=== PATIENT | female | born 1975 | race Two or more races ===

== ENCOUNTER 2020-01-15 06:07 | Inpatient (IN) | payer OTHER ==
[2020-01-14 09:59] LABS: BASOPHILS # (AUTO) 0.02 x10^3/uL (0-0.1); BASOPHILS % (AUTO) 0 % (0-1); EOSINOPHILS # (AUTO) 0.11 x10^3/uL (0-0.4); EOSINOPHILS % (AUTO) 2 % (1-7); LYMPHOCYTES # (AUTO) 1.82 x10^3/uL (1-3.4); LYMPHOCYTES % (AUTO) 31 % (22-44); MD NO; MEAN CORPUSCULAR HEMOGLOBIN 30.7 pg (27.0-34.8); MEAN CORPUSCULAR HGB CONC 33.9 g/dL (32.4-35.8); MEAN CORPUSCULAR VOLUME 90.6 fL (80-100); MEAN PLATELET VOLUME 10.5 fL (7.4-10.4); MONOCYTES # (AUTO) 0.38 x10^3/uL (0.2-0.8); MONOCYTES % (AUTO) 7 % (2-9); NEUTROPHILS # (AUTO) 3.57 x10^3/uL (1.8-6.8); NEUTROPHILS % (AUTO) 61 % (42-75); PLATELET COUNT 180 x10^3/uL (130-400); RED BLOOD COUNT 4.42 x10^6/uL (3.82-5.3); RED CELL DISTRIBUTION WIDTH 13.1 % (9.6-15.2)
[2020-01-14 10:13] LABS: ANION GAP 5 mmol/L (5-15); CALCIUM 9.3 mg/dL (8.5-10.1); CHLORIDE 108 mmol/L (98-107); CHOLESTEROL, TOTAL 178 mg/dL (140-239); TOTAL IRON BINDING CAPACITY 340 mcg/dL (250-450)
[2020-01-14 10:40] LABS: % IRON SATURATION 25 % (20-55); ALANINE AMINOTRANSFERASE 56 U/L (12-78); ALKALINE PHOSPHATASE 60 U/L (45-117); BILIRUBIN,TOTAL 0.8 mg/dL (0.2-1.0); CHOL/HDL RATIO 3.5; HDL CHOL % 29 % (28-40); HDL CHOLESTEROL (DIRECT) 51 mg/dL (40-60); IRON LEVEL 86 mcg/dL (50-170); LDL CHOLESTEROL,CALCULATED 86 mg/dL (54-169); LDL/HDL RATIO 1.7 (0.5-3.0); PREALBUMIN 21.5 mg/dL (20.0-40.0); TOTAL PROTEIN 7.3 g/dL (6.4-8.2); TRANSFERRIN 279 mg/dL (200-360); TRIGLYCERIDES 204 mg/dL (50-200); VLDL CHOLESTEROL 41 mg/dL (0-25)
[~2020-01-15] VITALS: Ht 154.9 cm; Wt 124.0 kg
[~2020-01-15 06:07] MED LIST: LISI-170 PO
[2020-01-15] MEDS ORDERED: BUPIVACAINE/PF-EPI 0.5% 1:200K ONE (06:47)
[2020-01-15] MEDS ORDERED: LACTATED RINGERS 1,000 ML IV SCH (07:14)
[2020-01-15 07:18] VITALS: BP 132/82
[2020-01-15] MEDS ORDERED: SCOPOLAMINE 1MG PATCH TD ONE (07:30)
[2020-01-15] MEDS ORDERED: CHLORHEXIDINE 15 ML UDC MM ONE (07:30)
[2020-01-15] MEDS ORDERED: ACETAMINOPHEN 100 ML IVPB ONE ×2 (07:30→08:00)
[2020-01-15] MEDS ORDERED: CHLORHEXIDINE 15 ML UDC ONE (07:37)
[2020-01-15 07:45] LABS: HCG UR SG 1.012 (1.003-1.030)
[2020-01-15] MEDS ORDERED: FENTANYL PF 250 MCG/5ML ONE (08:31)
[2020-01-15] MEDS ORDERED: MIDAZOLAM 1 MG/ML, 2ML ONE (08:31)
[2020-01-15] MEDS ORDERED: ONDANSETRON 2MG/ML, 2ML ONE ×2 (09:04→13:09)
[2020-01-15] MEDS ORDERED: SUGAMMADEX 200 MG/2 ML IVPush ONE (09:04)
[2020-01-15] MEDS ORDERED: ROCURONIUM 10 MG/ML,10ML ONE (09:04)
[2020-01-15] MEDS ORDERED: CEFAZOLIN 1,000 MG ONE (09:04)
[2020-01-15] MEDS ORDERED: PROPOFOL 10 MG/ML, 20ML ONE (09:04)
[2020-01-15] MEDS ORDERED: SUCCINYLCHOLINE 20 MG/ML, 10ML ONE (09:04)
[2020-01-15] MEDS ORDERED: DEXAMETHASONE 4 MG/ML, 1ML ONE (09:04)
[2020-01-15] MEDS ORDERED: KETOROLAC 30 MG/1 ML ONE (09:04)
[2020-01-15] MEDS: LACTATED RINGERS 1,000 ML IV SCH ×3 (09:58→21:57)
[2020-01-15] MEDS ORDERED: KETOROLAC 30 MG/1 ML IV PRN (10:00)
[2020-01-15] MEDS ORDERED: METOCLOPRAMIDE 5 MG/ML, 2ML IV PRN (10:00)
[2020-01-15] MEDS ORDERED: ENOXAPARIN 40 MG/0.4 ML SQ SCH (10:00)
[2020-01-15] MEDS ORDERED: ALBUTEROL SULFATE 2.5 MG/3 ML NPPB PRN (10:00)
[2020-01-15] MEDS ORDERED: DIAZEPAM 5 MG/ML, 2ML IV PRN ×2 (10:00)
[2020-01-15] MEDS ORDERED: HYDROmorphone 1 MG/ML, 1ML INJ IV PRN (10:00)
[2020-01-15] MEDS ORDERED: PHENOL THROAT SPRAY BOTTLE MM PRN (10:00)
[2020-01-15] MEDS ORDERED: OXYcodone 5 MG/5 ML ORAL.SOL UDC PO PRN (10:00)
[2020-01-15] MEDS ORDERED: PROMETHAZINE 25 MG/ML, 1ML IM PRN (10:00)
[2020-01-15] MEDS ORDERED: LABETALOL 5MG/ML, 20ML IV PRN (10:00)
[2020-01-15] MEDS ORDERED: MEPERIDINE/PF 25MG/0.5ML IVPush PRN (10:00)
[2020-01-15] MEDS ORDERED: ONDANSETRON 2MG/ML, 2ML IVPush PRN ×2 (10:00)
[2020-01-15] MEDS: FAMOTIDINE 20 MG/2 ML IVPush SCH ×2 (10:00→21:42)
[2020-01-15] MEDS ORDERED: PROMETHAZINE 12.5 MG SUPP PR PRN (10:00)
[2020-01-15] MEDS ORDERED: morphine SULFATE 10 MG/ML, 1ML IVPush PRN (10:00)
[2020-01-15] MEDS ORDERED: ENALAPRILAT 1.25 MG/ML, 2ML IV PRN (10:00)
[2020-01-15] MEDS ORDERED: LORazepam 2 MG/ML, 1ML IV PRN (10:00)
[2020-01-15] MEDS ORDERED: hydrALAzine 20 MG/ML, 1ML IVPush PRN (10:00)
[2020-01-15] MEDS ORDERED: DIPHENHYDRAMINE 50 MG/ML, 1ML IV PRN (10:00)
[2020-01-15] MEDS ORDERED: PROMETHAZINE 25 MG/ML, 1ML IV PRN (10:00)
[2020-01-15] MEDS ORDERED: FENTANYL PF 100 MCG/2ML ONE ×2 (10:18→11:05)
[2020-01-15] MEDS ORDERED: PROMETHAZINE 25 MG/ML, 1ML ONE (10:18)
[2020-01-15] MEDS: FENTANYL PF 100 MCG/2ML IV PRN ×5 (10:23→11:13)
[2020-01-15] MEDS ORDERED: hydrALAzine 20 MG/ML, 1ML ONE ×2 (10:29→11:03)
[2020-01-15] MEDS: hydrALAzine 20 MG/ML, 1ML IV PRN ×2 (10:33→11:07)
[2020-01-15] MEDS ORDERED: METOCLOPRAMIDE 5 MG/ML, 2ML ONE (10:50)
[2020-01-15 15:12] VITALS: BP 148/77
[2020-01-15] MEDS: ENOXAPARIN 40 MG/0.4 ML SQ SCH (15:22)
[2020-01-15] MEDS ORDERED: HYDR15SO3 PO (17:39)
[2020-01-15] MEDS: HYDROcodone/APAP 7.5-325MG/15ML UDC PO PRN (17:48)
[2020-01-15 18:51] VITALS: BP 150/70
[2020-01-15] MEDS: KETOROLAC 30 MG/1 ML IVPush PRN (21:42)
[2020-01-16 00:06] VITALS: BP 138/72
[2020-01-16] MEDS: LACTATED RINGERS 1,000 ML IV SCH (04:11)
[2020-01-16] MEDS: KETOROLAC 30 MG/1 ML IVPush PRN (04:18)
[2020-01-16 06:16] LABS: MEAN CORPUSCULAR HEMOGLOBIN 30.5 pg (27.0-34.8); MEAN CORPUSCULAR HGB CONC 33.2 g/dL (32.4-35.8); MEAN CORPUSCULAR VOLUME 91.8 fL (80-100); MEAN PLATELET VOLUME 10.7 fL (7.4-10.4); PLATELET COUNT 179 x10^3/uL (130-400); RED CELL DISTRIBUTION WIDTH 13.1 % (9.6-15.2)
[2020-01-16 06:27] LABS: ALBUMIN 3.3 g/dL (3.4-5.0); ANION GAP 7 mmol/L (5-15); CALCIUM 8.6 mg/dL (8.5-10.1); CHLORIDE 110 mmol/L (98-107); CREATININE 0.64 mg/dL (0.55-1.02)
[2020-01-16] MEDS: ENOXAPARIN 40 MG/0.4 ML SQ SCH (06:29)
[2020-01-16 06:45] LABS: BASOPHILS # (AUTO) 0.01 x10^3/uL (0-0.1); BASOPHILS % (AUTO) 0 % (0-1); EOSINOPHILS # (AUTO) 0.01 x10^3/uL (0-0.4); EOSINOPHILS % (AUTO) 0 % (1-7); LYMPHOCYTES # (AUTO) 1.61 x10^3/uL (1-3.4); LYMPHOCYTES % (AUTO) 14 % (22-44); MD SCAN; MONOCYTES # (AUTO) 0.52 x10^3/uL (0.2-0.8); MONOCYTES % (AUTO) 5 % (2-9); NEUTROPHILS % (AUTO) 81 % (42-75)
[2020-01-16 08:08] VITALS: BP 145/67
[2020-01-16] MEDS: HYDROcodone/APAP 7.5-325MG/15ML UDC PO PRN (08:28)
[2020-01-16] MEDS: FAMOTIDINE 20 MG/2 ML IVPush SCH (08:30)
[2020-01-16] MEDS ORDERED: LISINOPRIL 20 MG TABLET PO SCH (09:00)
== END 2020-01-16 09:20 | disposition home or self-care (01) | DRG 621 ==
LOC: ORIP 06:07 → 3WST 14:51
PROVIDERS: ADMIT Thoracic Surgery (Cardiothoracic Vascular Surgery); ATTEND Thoracic Surgery (Cardiothoracic Vascular Surgery)
PROC: 0DB64Z3 Excision of Stomach, Percutaneous Endoscopic Approach, Vertical (ICD-10-PCS; principal; 2020-01-15 09:00)
DX: E66.01 Morbid (severe) obesity due to excess calories (principal); G47.30 Sleep apnea, unspecified; I10 Essential (primary) hypertension; Z68.43 Body mass index [BMI] 50.0-59.9, adult; Z83.3 Family history of diabetes mellitus
CPT/HCPCS: 36415; J3490; 71046; 80048; 80053; 80061; 81025; 82040; 82306; 82607; 82728; 83540; 83550; 83970; 84134; 84425; 84466; 85025; 93005; G0378; J0131; J0690; J1100; J1650; J1885; J2250; J2405; J2550; J2704; J3010; J0330; J0360; J2765; J7120

== ENCOUNTER → 2020-06-18 | Outpatient (CLI) | payer OTHER ==
[~2020-06-18] MED LIST changes: +HYDR15SO3 PO
[2020-06-18 14:37] LABS: ALANINE AMINOTRANSFERASE 22 U/L (12-78); ALBUMIN 3.8 g/dL (3.4-5.0); ANION GAP 6 mmol/L (5-15); CALCIUM 9.4 mg/dL (8.5-10.1); CHLORIDE 109 mmol/L (98-107); CREATININE 0.58 mg/dL (0.55-1.02)
[2020-06-18 14:39] LABS: ALKALINE PHOSPHATASE 64 U/L (45-117); BILIRUBIN,TOTAL 0.7 mg/dL (0.2-1.0); TOTAL PROTEIN 7.3 g/dL (6.4-8.2)
[2020-06-18 15:05] LABS: MICROSCOPIC NOT IND
== END | disposition home or self-care (01) ==
LOC: STAR 13:21
PROVIDERS: ATTEND Thoracic Surgery (Cardiothoracic Vascular Surgery)
DX: Z01.812 Encounter for preprocedural laboratory examination (principal); Z20.828 Contact with and (suspected) exposure to other viral communicable diseases
CPT/HCPCS: 80053; 81003; 87635

== ENCOUNTER 2020-06-24 07:12 | Observation (INO) | payer OTHER ==
[~2020-06-24] VITALS: Ht 167.6 cm; Wt 87.0 kg
[~2020-06-24 07:12] MED LIST changes: +BUPIVACAINE/PF-EPI 0.5% 1:200K ONE
[2020-06-24 07:56] VITALS: BP 128/85
[2020-06-24] MEDS ORDERED: CHLORHEXIDINE 15 ML UDC MM ONE (08:00)
[2020-06-24] MEDS ORDERED: LACTATED RINGERS 1,000 ML IV SCH ×2 (08:00→10:00)
[2020-06-24 08:05] LABS: HCG UR SG 1.008 (1.003-1.030)
[2020-06-24] MEDS ORDERED: LIDOCAINE-MPF 2% ,5ML ONE ×2 (08:40)
[2020-06-24] MEDS ORDERED: ROCURONIUM 10MG/ML,5ML ONE ×2 (08:40)
[2020-06-24] MEDS ORDERED: PROPOFOL 10 MG/ML, 20ML ONE (08:40)
[2020-06-24] MEDS ORDERED: FENTANYL PF 250 MCG/5ML ONE (08:40)
[2020-06-24] MEDS ORDERED: BUPIVACAINE/PF-EPI 0.5% 1:200K INFIL ONE (08:55)
[2020-06-24] MEDS ORDERED: CEFAZOLIN 1,000 MG ONE (08:55)
[2020-06-24] MEDS ORDERED: DEXAMETHASONE 4 MG/ML, 5ML ONE (08:55)
[2020-06-24] MEDS ORDERED: ACETAMINOPHEN 325 MG TABLET PO PRN (09:00)
[2020-06-24] MEDS ORDERED: OXYcodone 5 MG/5 ML ORAL.SOL UDC PO PRN (09:00)
[2020-06-24] MEDS ORDERED: ONDANSETRON 2MG/ML, 2ML IVPush PRN ×2 (09:00→10:00)
[2020-06-24] MEDS ORDERED: HYDROmorphone 1 MG/ML, 1ML INJ IVPush PRN (09:00)
[2020-06-24] MEDS ORDERED: SUGAMMADEX 200 MG/2 ML IVPush ONE (09:09)
[2020-06-24] MEDS ORDERED: KETOROLAC 30 MG/1 ML ONE (09:09)
[2020-06-24] MEDS ORDERED: ONDANSETRON 2MG/ML, 2ML ONE (09:09)
[2020-06-24] MEDS ORDERED: GLYCOPYRROLATE 0.2MG/1ML, 5ML ONE (09:18)
[2020-06-24] MEDS ORDERED: morphine SULFATE 10 MG/ML, 1ML IVPush PRN (10:00)
[2020-06-24] MEDS ORDERED: HYDROcodone/APAP 5/325 TABLET PO PRN (10:00)
[2020-06-24] MEDS ORDERED: METHOCARBAMOL 1,000 MG in DEXTROSE 5% 100 ML IV ONE (10:00)
[2020-06-24] MEDS ORDERED: ACETAMINOPHEN 325 MG TABLET ONE (10:05)
[2020-06-24] MEDS ORDERED: ACETAMINOPHEN 650 MG/20.3 ML UDC ONE (10:05)
[2020-06-24] MEDS ORDERED: OXYcodone 5 MG/5 ML ORAL.SOL UDC ONE (10:06)
[2020-06-24] MEDS ORDERED: FENTANYL PF 100 MCG/2ML ONE (10:10)
[2020-06-24] MEDS: FENTANYL PF 100 MCG/2ML IV PRN ×2 (10:12→10:40)
== END 2020-06-24 14:05 | disposition home or self-care (01) ==
LOC: OUT 07:12 → ORIP 09:55
PROVIDERS: ADMIT Thoracic Surgery (Cardiothoracic Vascular Surgery); ATTEND Thoracic Surgery (Cardiothoracic Vascular Surgery)
DX: K80.10 Calculus of gallbladder with chronic cholecystitis without obstruction (principal); E66.9 Obesity, unspecified
CPT/HCPCS: 47562; 81025; 88304; G0378; J0690; J1100; J1885; J2405; J2704; J2800; J3010; J3490; J7120